=== PATIENT | female | born 1985 | race Hispanic/Latino ===

== ENCOUNTER 2017-10-30 09:09 | Emergency (ER) | payer SELFPAY ==
[~2017-10-30] VITALS: Ht 175.3 cm; Wt 68.0 kg
[2017-10-30] MEDS ORDERED: TETRACAINE HCL 0.5% OPTH SOLN 4 ML BTL OP ONE (09:15)
[2017-10-30] MEDS ORDERED: FLUORESCEIN SOD(OPTH) 1 MG STRP OP ONE (09:15)
== END 2017-10-30 09:53 | disposition home or self-care (01) ==
LOC: EEVIPCON 09:09 → ER 09:09
DX: H57.12 Ocular pain, left eye (principal); H16.042 Marginal corneal ulcer, left eye
CPT/HCPCS: 99284